=== PATIENT | male | born 1990 ===

== ENCOUNTER 2022-10-20 08:12 | Emergency (ER) | payer MEDICAID, SELFPAY ==
--- NOTE | ~2022-10-20 | CT_ITS ---
EXAMINATION: CT HEAD WITHOUT CONTRAST CLINICAL INFORMATION: Seizure COMPARISON: None available. TECHNIQUE: Contiguous axial imaging was performed from the skull base to vertex without intravenous administration of contrast. This CT examination was performed using dose optimization techniques as appropriate, variously including the following: *Automated exposure control *Adjustment of mA and/or kV according to patient size (this includes techniques or standardized protocols for targeted exams where dose is matched to indication/reason for exam; i.e. extremities or head) *Use of iterative reconstruction technique DLP: 716 mGy-cm FINDINGS: There is no evidence of an extra-axial collection. There is no evidence of intra or extra-axial hemorrhage. The ventricles and extra-axial CSF spaces are appropriate. Rodriguez-white matter differentiation is normal. No mass, mass effect or infarct. No skull fracture. Large polyps or cysts in the bilateral maxillary sinuses. CT/CT head/brain wo IV con IMPRESSION: No acute intracranial findings.
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
[2022-10-20 08:19] VITALS: BP 150/80; PULSE 108; PULSE 115; RESP 16; TEMP 37.1; O2SAT 94; BMI 31.0
[2022-10-20 09:09] LABS: MANUAL DIFF FLAG NO
[2022-10-20 09:12] LABS: Basophils Percent Auto 0.3 % (0-2); Eosinophils Absolute Auto 0.2 X10*3/uL (0.0-0.4); Eosinophils Percent Auto 1.5 % (0-4); Hematocrit 40.7 % (42.0-52.0); Hemoglobin 13.9 g/dl (14.0-18.0); Imm Gran Abs Auto 0.22 X10*3/uL (0.00-0.03); Lymphocytes Absolute Auto 2.4 X10*3/uL (1.2-4.9); Lymphocytes Percent Auto 21.6 % (20-40); Mean Corpuscular HGB Conc 34.2 g/dl (31.0-36.0); Mean Corpuscular Hemoglobin 30.5 pg (27.0-33.0); Mean Corpuscular Volume 89.3 fL (80.0-98.0); Mean Platelet Volume 10.5 fL (9.4-12.4); Monocytes Absolute Auto 0.9 X10*3/uL (0.1-1.2); Monocytes Percent Auto 8.2 % (2-11); Neutrophils Absolute Auto 7.3 x10*3/uL (2.0-8.3); Neutrophils Percent Auto 66.4 % (45-73); Platelet Count 152 X10*3/uL (160-400); Red Blood Count 4.56 X10*6/uL (4.60-5.80); Red Cell Distribution Width 11.9 % (11.0-16.0)
[2022-10-20 09:26] LABS: Anion Gap 11 (12-20); Blood Urea Nitrogen 16 mg/dL (9-16); Calcium 9.1 mg/dL (8.4-10.2); Carbon Dioxide 24 mmol/L (22-29); Chloride 105 mmol/L (96-108); Creatinine Clr Calc Pharmacy 151.8; Estimated Glomerular Filt Rate > 60; Glucose Random 108 mg/dL (60-115); Potassium 4.2 mmol/L (3.3-5.1); Sodium 136 mmol/L (135-145)
[2022-10-20 10:01] VITALS: BP 129/77; PULSE 66; RESP 14; TEMP 36.5; O2SAT 97
[2022-10-20 10:05] LABS: Amphetamine Screen Urine Not Detected (Not Detect); Barbiturates, Urine Not Detected (Not Detect); Benzodiazepines Screen Urine Not Detected (Not Detect); Cannabinoid Screen Urine Not Detected (Not Detect); Cocaine Screen Urine POSITIVE (Not Detect); Fentanyl, urine Not Detected (Not Detect); Opiate Screen Urine Not Detected (Not Detect); Phencyclidine Screen Urine Not Detected (Not Detect)
== END 2022-10-20 11:54 | disposition home or self-care (01) ==
PROVIDERS: Emergency Provider Emergency Medicine
DX: R56.9 Unspecified convulsions (principal); F19.10 Other psychoactive substance abuse, uncomplicated; F11.20 Opioid dependence, uncomplicated
CPT/HCPCS: 36415; 70450; 80048; 80307; 85025; 99284

== ENCOUNTER 2022-12-06 00:39 | Emergency (ER) | payer MEDICAID, SELFPAY ==
--- NOTE | ~2022-12-06 | XR_ITS ---
EXAMINATION: XR WRIST, RIGHT CLINICAL INFORMATION: Acute pain, trauma COMPARISON: None available. TECHNIQUE: Four views of the right wrist. FINDINGS: Osseous alignment is anatomic. There is dorsal soft tissue swelling and a possible osseous fragment dorsal to the proximal carpal row, raising concern for a triquetral fracture in the setting of trauma. No additional acute focal abnormality is seen. XR/XR wrist RT min 3V IMPRESSION: Possible triquetral fracture with associated dorsal soft tissue swelling. Correlation with point tenderness is recommended.
[2022-12-06 00:41] VITALS: BP 138/90; PULSE 106; RESP 18; TEMP 36.6; O2SAT 98; BMI 29.5
[2022-12-06 03:08] VITALS: BP 122/78; PULSE 99; RESP 17; TEMP 37.1; O2SAT 95
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
[2022-12-06] MEDS: Ketorolac Tromethamine 60 MG/2 ML VIAL IM (03:42)
--- NOTE | 2022-12-06 03:46 | MHC.EDTECH ---
Per the request of a volar splint was applied to pts right arm, this tech had provider check for placement. Patient tolerated procedure well and is awaiting discharge at this time. RN aware
== END 2022-12-06 03:50 | disposition home or self-care (01) ==
PROVIDERS: Emergency Provider Emergency Medicine
DX: S62.101A Fracture of unspecified carpal bone, right wrist, initial encounter for closed fracture (principal); M25.531 Pain in right wrist; Y04.2XXA Assault by strike against or bumped into by another person, initial encounter; Y93.9 Activity, unspecified; Y92.9 Unspecified place or not applicable; Y99.9 Unspecified external cause status
CPT/HCPCS: 73110; 96372; 99284; J1885

== ENCOUNTER 2022-12-14 10:50 | Outpatient (REF) | payer MEDICAID, SELFPAY ==
--- NOTE | ~2022-12-14 | XR_ITS ---
Examination: Right wrist. Clinical indication pain in right hand. COMPARISON: Right wrist 12/06/2022. TECHNIQUE: 4 views right wrist. FINDINGS: Again visualized is a small fragment dorsal to the triquetrum likely triquetrum fracture with mild dorsal soft tissue swelling which has improved slightly since 12/06/2022. No additional bony abnormality seen. XR/XR wrist RT w scaphoid IMPRESSION: Small avulsion fracture dorsal triquetrum with mild dorsal soft tissue swelling. The soft tissue swelling has improved since 12/06/2022.
== END 2022-12-14 10:51 | disposition home or self-care (01) ==
LOC: HO.HOSX 10:50
PROVIDERS: Visit Provider Physician Assistant
DX: S62.001A Unspecified fracture of navicular [scaphoid] bone of right wrist, initial encounter for closed fracture (principal); S62.111A Displaced fracture of triquetrum [cuneiform] bone, right wrist, initial encounter for closed fracture
CPT/HCPCS: 73110

== ENCOUNTER 2022-12-15 09:44 | Outpatient (AMB) | payer MEDICAID, SELFPAY ==
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
[2022-12-15 09:55] VITALS: BMI 29.4
== END 2022-12-15 11:11 | disposition home or self-care (01) ==
PROVIDERS: Visit Provider Physician Assistant
DX: S62.001A Unspecified fracture of navicular [scaphoid] bone of right wrist, initial encounter for closed fracture (principal); S62.111A Displaced fracture of triquetrum [cuneiform] bone, right wrist, initial encounter for closed fracture
CPT/HCPCS: 99204

== ENCOUNTER 2023-03-07 11:15 | Emergency (ER) | payer MEDICAID, SELFPAY ==
[2023-03-07 11:27] VITALS: BP 174/96; PULSE 112; O2SAT 97; BMI 31.6
[2023-03-07 11:29] VITALS: BP 164/84; PULSE 114; RESP 18; TEMP 36.3; O2SAT 93
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
--- NOTE | 2023-03-07 11:36 | ECG_ITS ---
Test Reason : SEIZURE Blood Pressure : / mmHG Vent. Rate : 095 BPM Atrial Rate : 095 BPM P-R Int : 136 ms QRS Dur : 096 ms QT Int : 358 ms P-R-T Axes : 047 026 035 degrees QTc Int : 449 ms Normal sinus rhythm with sinus arrhythmia Normal ECG No previous ECGs available Referred By: Radha Morrow Electronically Signed By:RICH RUSS MD
--- NOTE | 2023-03-07 11:37 | ED_ITS ---
HPI - Seizure General Chief Complaint: Seizure Stated Complaint: SEIZURE Time Seen by Provider: 03/07/23 11:33 Source: patient and other (Friend) Mode of arrival: ambulatory Limitations: no limitations History of Present Illness HPI Narrative: This is a 33-year-old male former history of substance abuse presenting to the emergency department status post witnessed seizure, seizure occurred while patient was seated in the passenger seat of a friend's car friend reports seizure was tonic clonic involved upper and lower extremities and lasted approximately a minute, patient was confused afterwards. No head strike, or trauma. Patient states he has had multiple seizures within the past few months has not yet seen Neurology. Is not on any seizure medications. He says he has had multiple negative head scans. Patient does not drink alcohol regularly. Denies drug use. Denies headache, vision changes, dizziness, weakness, chest pain, shortness of breath, abdominal pain, nausea and vomiting. No medical complaints at this time. Seizure History: Yes Place: car Related Data Previous Rx's Medication Instructions Recorded levetiracetam 500 mg tablet 500 mg PO BID 30 days #60 tabs 03/07/23 ([place]) Allergies Allergy/AdvReac Type Severity Reaction Status Date / Time No Known Allergies Allergy Verified 03/07/23 11:27 Review of Systems 2 Review of Systems: Constitutional : No Weight loss, No Fever, No Chills, No Fatigue, No Malaise ENT/Mouth : No sore throat, No Rhinorrhea Eyes: No Eye Pain, No Swelling, No Redness Cardiovascular : No Chest Pain, No SOB, No Dyspnea on Exertion, No Orthopnea, No Edema, No Palpitations Respiratory : No Cough, No Sputum, No Wheezing Gastrointestinal : No Nausea, No Vomiting, No Diarrhea, No Constipation, No abdominal Pain, No Hematochezia, No Melena Genitourinary : No Dysuria, No Urinary Frequency, No Hematuria, Musculoskeletal : No joint pain, No Myalgias, No Joint Swelling Skin : No Skin Lesions, No rash Neuro : No Weakness, No Numbness, No Dizziness, No Headache Psych : No Anxiety/Panic, No Depression All other systems reviewed and are negative Yes all other systems are reviewed and are negative PMFSH Past Medical History Attestation statement: The following information was validated with the patient. 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 Oriented X3.? No acute distress.? Head: Normocephalic, atraumatic, no step-offs or deformities Eyes: Pupils equal, round and reactive to light.? Neck: Normal inspection.? Neck supple.? CVS: Normal heart rate and rhythm.? Pulses normal.? Respiratory: No respiratory distress.? Breath sounds normal.? Abdomen: Soft and nontender.? Skin: Skin warm and dry.? Normal skin color.? Normal skin turgor.? Extremities: No lower extremity edema.? No calf ttp. 5/5 strength to bilateral upper and lower extremities Neuro: Oriented X 3.? No motor deficit.? No sensory deficit. CN 2-12 intact. Normal [id number]. Ambulatory steady gait normal coordination. Course Reevaluation(s) Reevaluation #1: Patient well-appearing, without seizure-like activity while in the department. CBC within normal limits. Chemistry unremarkable. Urine is pending however patient would like to leave without giving us urine no urinary symptoms. Time: 12:10 Reevaluation #2: I did discuss this case with my attending recommends starting Keppra 500 mg p.o. b.i.d., and having patient follow-up with neurology. No indication for head CT as he did have 1 before which was normal. There is 1 in our system I can verify. Educated patient on diagnosis and treatment plan, answered all question, patient verbalizes understanding. At this time patient will be discharged home, advised to return with new or worsening symptoms. Educated on worrisome signs and symptoms and when to return. At this time I feel comfortable discharge home. Patient requesting to leave. He was given Ativan. He is not driving. Time: 12:10 Medications Administered Discontinued Medications Generic Name Dose Route Start Last Admin Trade Name José Luis PRN Reason Stop Dose Admin Lorazepam 2 mg 03/07/23 11:36 03/07/23 11:53 Lorazepam 1 Mg Tablet PO 03/07/23 11:37 2 mg ONCE ONE Administration Medical Decision Making Medical Decision Making [facility] Narrative: 1142 33 yo m presents s/p witnessed seizure has had szs before not on meds and not followed by neurology PE- benign. Nonfocal neuro Likely epilepsy unlikely alcohol withdrawal seizure. I do not suspect intracranial hemorrhage, stroke, posterior stroke. Low suspicion for brain mass, patient recently had a head CT in September 2022 unremarkable. Denies substance abuse. Plan basic labs, EKG, will give 2 mg p.o. Ativan to raise seizure threshold Differential Diagnosis Differential Diagnoses: The differential diagnosis associated with the presentation includes Likely epilepsy unlikely alcohol withdrawal seizure. I do not suspect intracranial hemorrhage, stroke, posterior stroke. Low suspicion for brain mass, patient recently had a head CT in September 2022 unremarkable. Denies substance abuse. Admission/Observation Consideration of admission/observation: Escalation of care including admission/observation considered unlikely Lab Data [facility] Lab Attestation statement: I reviewed the patient's lab results. 03/07/23 11:40 03/07/23 11:40 Labs: Lab Results 03/07/23 Range/Units 11:40 WBC 7.8 (4.8-10.8) X10*3/uL RBC 4.76 (4.60-5.80) X10*6/uL Hgb 14.8 (14.0-18.0) g/dl Hct 43.9 (42.0-52.0) % MCV 92.2 (80.0-98.0) fL MCH 31.1 (27.0-33.0) pg MCHC 33.7 (31.0-36.0) g/dl RDW 12.8 (11.0-16.0) % Plt Count 185 (160-400) X10*3/uL MPV 11.1 (9.4-12.4) fL Immature Gran % (Auto) 0.3 (0.0-0.4) % Neut % (Auto) 65.9 (45-73) % Lymph % (Auto) 22.5 (20-40) % Granite % (Auto) 9.7 (2-11) % Eos % (Auto) 1.2 (0-4) % Baso % (Auto) 0.4 (0-2) % Lymph # (Auto) 1.8 (1.2-4.9) X10*3/uL Granite # (Auto) 0.8 (0.1-1.2) X10*3/uL Eos # (Auto) 0.1 (0.0-0.4) X10*3/uL Baso # (Auto) 0.0 (0.0-0.2) X10*3/uL Abs Immat Gran (auto) 0.02 (0.00-0.03) X10*3/uL Absolute Neuts (auto) 5.1 (2.0-8.3) x10*3/uL Absolute Nucleated RBC 0.000 (0.0-0.012) X10*3/uL Nucleated RBC % (auto) 0.0 (0.0-0.2) /100WBC Sodium 141 (135-145) mmol/L Potassium 4.8 (3.3-5.1) mmol/L Chloride 108 (96-108) mmol/L Carbon Dioxide 20 L (22-29) mmol/L Anion Gap 18 (12-20) BUN 12 (9-16) mg/dL Creatinine 0.82 (0.5-1.4) mg/dL Estim Creat Clear Calc 151.7 Estimated GFR > 60 Random Glucose 101 (60-115) mg/dL Calcium 9.7 D (8.4-10.2) mg/dL Total Bilirubin 0.4 (0.0-1.0) mg/dL AST 22 (5-37) U/L ALT 19 (0-40) U/L Alkaline Phosphatase 94 (39-117) U/L Total Protein 7.9 (6.5-8.0) g/dL Albumin 4.6 (3.5-5.0) g/dL Tests considered The following testing was considered but not selected: Considered obtaining head CT however no indication at this time no head trauma, neurological assessment nonfocal had a normal head CT on 10/20/2022. Prescription Management I considered prescription management with: Other (Joera ) Critical Care Time Critical Care Time Critical Care Time: No Discharge Plan Discharge Clinical Impression: Generalized seizure Patient Disposition: Home, Self-Care Instructions: New-Onset Seizure in Adults (ED) Additional Instructions: Take your medications as prescribed. If you were prescribed antibiotics today, it is important that you take your medication to their entirety, do not skip any doses, do not finish them early. Follow-up with your primary care provider this week. Return to the emergency department with new or worsening symptoms. Such as fevers, chills, chest pain, shortness of breath, nausea, vomiting, dizziness, headache, vision changes, lethargy In case of emergency call 911 Please to not operate a vehicle , drive or operate machinery until cleared by Neurology. I have sent you medication called Oscar, please take this twice a day for seizures. Neurology follow-up below Prescriptions: New levetiracetam [Keppra] 500 mg tablet 500 mg PO BID 30 Days Qty: 60 0RF Referrals: [facility] [place] [facility] [place] Group] - 2 days Center,Counts Include [facility] [Primary Care Provider] - 2 days Stand Alone Forms: Work/School Release
--- NOTE | 2023-03-07 11:44 | PC.NURSE ---
tech bedside obtaining labs.
[2023-03-07 11:48] LABS: Basophils Percent Auto 0.4 % (0-2); Eosinophils Absolute Auto 0.1 X10*3/uL (0.0-0.4); Eosinophils Percent Auto 1.2 % (0-4); Hematocrit 43.9 % (42.0-52.0); Hemoglobin 14.8 g/dl (14.0-18.0); Imm Gran Abs Auto 0.02 X10*3/uL (0.00-0.03); Imm Gran Pct Auto 0.3 % (0.0-0.4); Lymphocytes Absolute Auto 1.8 X10*3/uL (1.2-4.9); Lymphocytes Percent Auto 22.5 % (20-40); MANUAL DIFF FLAG NO; Mean Corpuscular HGB Conc 33.7 g/dl (31.0-36.0); Mean Corpuscular Hemoglobin 31.1 pg (27.0-33.0); Mean Corpuscular Volume 92.2 fL (80.0-98.0); Mean Platelet Volume 11.1 fL (9.4-12.4); Monocytes Absolute Auto 0.8 X10*3/uL (0.1-1.2); Monocytes Percent Auto 9.7 % (2-11); Neutrophils Absolute Auto 5.1 x10*3/uL (2.0-8.3); Neutrophils Percent Auto 65.9 % (45-73); Platelet Count 185 X10*3/uL (160-400); Red Blood Count 4.76 X10*6/uL (4.60-5.80); Red Cell Distribution Width 12.8 % (11.0-16.0); White Blood Count 7.8 X10*3/uL (4.8-10.8)
[2023-03-07] MEDS: LORazepam 1 MG TABLET 2 MG PO (11:53)
--- NOTE | 2023-03-07 11:54 | PC.NURSE ---
medication administered per provider order. friends bedside for support.
[2023-03-07 12:02] LABS: Alanine Aminotransferase 19 U/L (0-40); Albumin Level 4.6 g/dL (3.5-5.0); Alkaline Phosphatase 94 U/L (39-117); Anion Gap 18 (12-20); Aspartate Amino Transferase 22 U/L (5-37); Bilirubin Total 0.4 mg/dL (0.0-1.0); Blood Urea Nitrogen 12 mg/dL (9-16); Calcium 9.7 mg/dL (8.4-10.2); Carbon Dioxide 20 mmol/L (22-29); Chloride 108 mmol/L (96-108); Creatinine Clr Calc Pharmacy 151.7; Estimated Glomerular Filt Rate > 60; Glucose Random 101 mg/dL (60-115); Potassium 4.8 mmol/L (3.3-5.1); Sodium 141 mmol/L (135-145); Total Protein 7.9 g/dL (6.5-8.0)
== END 2023-03-07 12:28 | disposition home or self-care (01) ==
PROVIDERS: Physician Assistant; Emergency Provider Emergency Medicine
DX: R56.9 Unspecified convulsions (principal); I49.8 Other specified cardiac arrhythmias; Z79.899 Other long term (current) drug therapy
CPT/HCPCS: 36415; 80053; 85025; 93005; 99283; 99284

== ENCOUNTER 2023-03-22 09:55 | Outpatient (REF) | payer MEDICAID, SELFPAY ==
--- NOTE | ~2023-03-22 | XR_ITS ---
EXAMINATION: XR WRIST, RIGHT CLINICAL INFORMATION: Pain in right hand COMPARISON: Right wrist radiograph from 12/15/2022 TECHNIQUE: 4 views of the right wrist FINDINGS: Redemonstration of dorsal triquetral fracture, similar in appearance. Joint spaces and alignment are otherwise maintained. Soft tissue swelling overlying the dorsum of the wrist. XR/XR wrist RT w scaphoid IMPRESSION: 1. Redemonstration of dorsal triquetral fracture, similar in appearance. 2. Joint spaces and alignment are otherwise maintained. 3. Soft tissue swelling overlying the dorsum of the wrist.
== END 2023-03-22 09:56 | disposition home or self-care (01) ==
LOC: HO.HOSX 09:55
PROVIDERS: Visit Provider Physician Assistant
DX: M79.641 Pain in right hand (principal); S62.024G Nondisplaced fracture of middle third of navicular [scaphoid] bone of right wrist, subsequent encounter for fracture with delayed healing; S62.111D Displaced fracture of triquetrum [cuneiform] bone, right wrist, subsequent encounter for fracture with routine healing; X58.XXXD Exposure to other specified factors, subsequent encounter
CPT/HCPCS: 73110; 99212

== ENCOUNTER 2023-03-22 09:55 | Outpatient (AMB) | payer MEDICAID, SELFPAY ==
--- NOTE | 2023-03-22 09:58 | MHC.OFFVIS ---
Intake Intake Visit Reasons: FC- Right wrist injury 11/2022 Intake Note: This is a 33 year old male who presents for a right wrist injury. He reports some pain and popping in the wrist. He denies any further injury. Allergies No Known Allergies Allergy (Verified 03/22/23 10:05) Medication List - Last Reconciled 03/22/23 by Yumiko Cota, RN levetiracetam (Keppra) 500 mg PO BID 30 days HPI FC- Right wrist injury 11/2022 HPI Details 33-year-old male who presents to the office today for right wrist injury in November 2022. He states he has pain which is aggravated in the morning and experiences popping in his right wrist. He denies any further injury. He was seen at our office in November and a CT scan was ordered. He states there was a problem with his health insurance at the time and was unable to have the CT scan done. 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 Review of Systems Const All systems reviewed & are unremarkable except as noted in HPI and below Physical Exam Const General: cooperative, healthy appearing, comfortable, no acute distress, well developed and alert Orientation/consciousness: patient oriented x3 HEENT Head: Yes normal to inspection, Yes normocephalic and Yes atraumatic Eyes General: appearance normal, both eyes and all related structures Resp Effort & Inspection: normal respiratory effort and able to speak in complete sentences Cardio Rate: regular rate Peripheral pulses: Peripheral pulses 2+ throughout GI Palpation (GI): Soft to palpation Skin Lesions: no lesions Rashes: no rashes Neuro General: patient oriented x3 Extrem Other: Right wrist: Able to make a closed fist. Able to perform full finger flexion, extension, abduction, adduction, finger cross, okay sign, and thumbs up without deficit. Tenderness to palpation at the base of the thumb and along the ulnar styloid. No pain over the scapholunate region. No DRUJ instability. No pain with wrist compression. NVI. Results Reviewed Results Reviewed: X-rays of the right wrist with scaphoid view obtained in the office today show a scaphoid fracture. Assessment & Plan Assessment & Plan (1) Fracture of scaphoid bone of right wrist: Code(s): S62.001A - Unspecified fracture of navicular [scaphoid] bone of right wrist, initial encounter for closed fracture Qualifiers: Encounter type: subsequent encounter Scaphoid bone location: middle third Fracture type: closed Fracture alignment: nondisplaced Fracture healing: with delayed healing Qualified Code(s): S62.024G - Nondisplaced fracture of middle third of navicular [scaphoid] bone of right wrist, subsequent encounter for fracture with delayed healing (2) Fracture of triquetral bone of right wrist: Code(s): S62.111A - Displaced fracture of triquetrum [cuneiform] bone, right wrist, initial encounter for closed fracture Qualifiers: Encounter type: subsequent encounter Fracture type: closed Fracture alignment: nondisplaced Fracture healing: with routine healing Qualified Code(s): S62.114D - Nondisplaced fracture of triquetrum [cuneiform] bone, right wrist, subsequent encounter for fracture with routine healing Plan I strongly recommend immobilization of right wrist with thumb spica cast however the patient is reluctant to have this put on because he states it will interfere with his job and cannot be out of work due to his financial situation. I explain to him that if he is not immobilizing his right wrist and is performing any type of lifting, pushing, pulling or carrying greater than a cellphone, he could really risk further injury to right wrist and develop a nonunion of the scaphoid. I explained to him that this could potentially result in collapse of the wrist where he could later on develop severe complications with the function of the wrist. He states he understands all of this but would prefer to be in a removable right wrist splint which he states he has at home as he does want to be provided with a new one today as he does not want to billed for it. He did assure me that he will go home and put on his right thumb spica brace and he will also come in to the office later this week to have it remolded. I also put in a new order for a CT scan to further evaluate the integrity of scaphoid. I strongly encouraged him to stop smoking as it does cause poor healing outcome in fracture. He does understand all this and follow-up once complete. Orders: Orders XR wrist RT w scaphoid 03/22/23 M79.641 - Pain in right hand CT wrist RT wo IV con 03/22/23 S62.001A - Unspecified fracture of navicular [scaphoid] bone of right wrist, initial encounter for closed fracture, S62.111A - Displaced fracture of triquetrum [cuneiform] bone, right wrist, initial encounter for closed fracture Patient Instructions: Scribed for Elizabeth Davila PA-C, by Kian Hirsch medical esthetician, on 03/22/2023 at 9:45 AM EST. I, Elziabeth Davila PA-C, have personally reviewed and agree with the information entered by the scribe. Coding Level of Care Code Global (83951) Diagnoses Closed nondisplaced fracture of middle third of scaphoid of right wrist with delayed healing, subsequent encounter S62.024G Encounter type: subsequent encounter Scaphoid bone location: middle third Fracture type: closed Fracture alignment: nondisplaced Fracture healing: with delayed healing Closed nondisplaced fracture of triquetrum of right wrist with routine healing, subsequent encounter S62.114D Encounter type: subsequent encounter Fracture type: closed Fracture alignment: nondisplaced Fracture healing: with routine healing
== END 2023-03-22 11:14 | disposition home or self-care (01) ==
PROVIDERS: Visit Provider Physician Assistant
DX: S62.024G Nondisplaced fracture of middle third of navicular [scaphoid] bone of right wrist, subsequent encounter for fracture with delayed healing (principal); S62.114D Nondisplaced fracture of triquetrum [cuneiform] bone, right wrist, subsequent encounter for fracture with routine healing
CPT/HCPCS: 99213

== ENCOUNTER 2023-09-14 13:11 | Outpatient (REF) | payer MEDICAID, SELFPAY ==
--- NOTE | 2023-09-14 13:18 | EEG_ITS ---
FINDINGS: Waking background activity consists of a low voltage posterior 9 hertz frequency intermixed with muscle artifact anteriorly and scattered theta seen intermittently. Photic stimulation and hyperventilation are without activation. No focal, lateralizing, or paroxysmal discharges are seen. IMPRESSION: This waking EEG is within normal limits MD MILEY Ibarra/RAND / [id number]
== END 2023-09-14 13:12 | disposition home or self-care (01) ==
LOC: HO.NEURO 13:11
PROVIDERS: PCP Family Medicine; Visit Provider Family Medicine
DX: G40.909 Epilepsy, unspecified, not intractable, without status epilepticus (principal)
CPT/HCPCS: 95816

== ENCOUNTER 2024-11-18 06:34 | Inpatient (IN) | payer MEDICAID, SELFPAY ==
[2024-11-18] VITALS (9 sets, daily range): BP systolic 103–140; BP diastolic 48–70; PULSE 58–90; RESP 12–19; TEMP 36.2–37.7; O2SAT 96–100; BMI 24.8
--- NOTE | ~2024-11-18 | CT_ITS ---
CLINICAL HISTORY: AMS CT head without contrast Comparison: CT/SR - CT HEAD/BRAIN WO IV CON - 10/20/22 08:55 EDT Findings: No intra-axial mass, midline shift, hydrocephalus, or acute hemorrhage. No significant atrophy-like change or white matter disease. Mucous retention cyst right maxillary sinus. Paranasal sinuses and mastoid air cells are otherwise clear. The orbits are unremarkable. There is no acute fracture. IMPRESSION: 1. No acute intracranial findings. This document has been electronically signed by: Radha Perdomo MD on 11/18/2024 08:29:28
--- NOTE | 2024-11-18 06:45 | ECG_ITS ---
Test Reason : SEIZURE Blood Pressure : */* mmHG Vent. Rate : 82 BPM Atrial Rate : 82 BPM P-R Int : 132 ms QRS Dur : 110 ms QT Int : 402 ms P-R-T Axes : 66 48 59 degrees QTcB Int : 469 ms Normal sinus rhythm Normal ECG When compared with ECG of 07-Mar-2023 11:45, No significant change was found Referred By: Gege Banks Electronically Signed By: MATTHEW CALDERON
[2024-11-18] MEDS: levETIRAcetam in NaCl (iso-os) 1,500 MG/100 ML PIGGYBACK 400 MG IV (06:49)
[2024-11-18] MEDS: 0.9 % Sodium Chloride 1,000 ML 999 ML IVCONT (06:50)
--- NOTE | 2024-11-18 06:50 | ED.SEIZURE ---
HPI - Seizure General Chief Complaint: Seizure Stated Complaint: erratic behavior & substance use Time Seen by Provider: 11/18/24 06:44 Source: patient Mode of arrival: ambulatory Limitations: no limitations History of Present Illness ED Provider: Dr. Gege Banks HPI Narrative: Patient comes to the emergency room via ambulance for erratic behavior. According to EMS, the patient was found walking around his neighborhood trying to get into other people's houses. When EMS arrived, patient's seem confused, under the influence of drugs versus alcohol? . However, EMS reports that the patient's girlfriend informed that that earlier today patient had a seizure. On arrival to the emergency room, patient had a tonic-clonic seizure lasting approximately 2 minutes. Patient received a dose of 5 mg IM diazepam. Patient does have history of seizures. Seizure History: Yes Related Data Previous Rx's ?Medication ?Instructions ?Recorded levetiracetam 500 mg tablet 500 mg PO BID 30 days #60 tabs 03/07/23 (Keppra) Allergies Allergy/AdvReac Type Severity Reaction Status Date / Time No Known Allergies Allergy Verified 11/18/24 06:54 Review of Systems Review of Systems: Yes Unobtainable due to mental status and Other (Patient is postictal) [facility] Past Medical History Medical History (Updated 11/18/24 @ 07:00 by Gege Banks MD) Seizures Social History Social History Alcohol intake: current Alcohol intake frequency: a few times a week Alcohol type: hard liquor Substance Use Type: Painkillers Advance Directives: No Advance Directives Information Provided: Yes Do you have a plan to hurt others: No Plan Current occupational status: employed 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 ENT: Pharynx normal. No bites to the tongue Neck: Normal inspection. Neck supple. No lymph nodes noted. No crepitus CVS: Normal heart rate and rhythm. Pulses normal. Normal S1 and S2 Respiratory: No respiratory distress. Breath sounds normal. No Wheezing. No rales Abdomen: Soft and nontender. No rigidity. No distention. Skin: Skin warm and dry. Normal skin color. Normal skin turgor. Extremities: No lower extremity edema. No Lacerations. No Rash Neuro: Patient recovering from a tonic-clonic seizure that was witnessed here in the emergency room Psych: Postictal Course Course Course Narrative: On arrival to the emergency room, patient had a tonic-clonic seizure. Seems that earlier today patient had a seizure as well. Unclear if the patient's erratic behavior happened before or after the initial seizure. It is possible the patient has been postictal. Patient received a dose of IM diazepam 5 mg and now receiving IV 1500 mg of Keppra All of patient's labs pending Seems that patient has had at least 2 seizures today. Patient will need admission. I reviewed patient's past medical records, in 2022, patient was seen here at this hospital for seizures. Reevaluation(s) Reevaluation #1: 34-year-old male with history of generalized seizure not taking antiseizure medication with known previous neurological evaluation for his condition, had a witnessed seizure by significant other followed by postictal confusion and erratic behavior witnessed by his significant other, then patient had another seizure in the ED with postictal period. Patient now is awake, able to regard examiner patient is unable to tell me if he is taking antiseizure medication or not. Head CT reveals no acute intracranial pathology. Labs revealing leukocytosis and lactic acidosis, patient received fluids will repeat lactic acid which is likely secondary to seizure. Patient received 1500 mg of Keppra loading dose in the ED. Time: 09:42 Medications Administered Discontinued Medications Generic Name Dose Route Start Last Admin Trade Name Freq PRN Reason Stop Dose Admin Diazepam 5 mg 11/18/24 06:44 11/18/24 07:01 Diazepam 10 Mg/2 Ml Cartridge IM 11/18/24 06:45 5 mg STAT STA Administration Levetiracetam 1,500 mg in 100 mls @ 400 mls/hr 11/18/24 06:44 11/18/24 07:06 Keppra IV 11/18/24 06:58 Infused ONCE ONE Infusion Sodium Chloride 1,000 mls @ 999 mls/hr 11/18/24 06:45 11/18/24 07:55 Ns IVCONT 11/18/24 07:45 Infused .Q1H1M ONE Infusion Lactated Ringer's 1,000 mls @ 999 mls/hr 11/18/24 07:45 11/18/24 08:50 Lr IV 11/18/24 08:45 Infused .Q1H1M VALERIE Infusion Medical Decision Making Medical Decision Making MDM Narrative: Patient has history of seizures. However, patient was running outside acting erratic, unclear if patient had any kind of head injury. Head CT pending. My interpretation of EKG: Normal sinus rhythm, heart rate 82, no ST segment depression or elevation, no T-wave inversion, QTC 469 All of patient's labs and imaging pending Sign out given to my colleague Dr. Guzman Differential Diagnosis Differential Diagnoses: The differential diagnosis associated with the presentation includes (Polysubstance abuse, epilepsy, alcohol withdrawal seizures) Admission/Observation Consideration of admission/observation: Escalation of care including admission/observation considered Lab Data 11/18/24 07:04 11/18/24 07:04 Labs: Lab Results 11/18/24 Range/Units 07:04 WBC 17.3 H (4.8-10.8) X10*3/uL RBC 4.47 L (4.60-5.80) X10*6/uL Hgb 13.6 L (14.0-18.0) g/dl Hct 39.5 L (42.0-52.0) % MCV 88.4 (80.0-98.0) fL MCH 30.4 (27.0-33.0) pg MCHC 34.4 (31.0-36.0) g/dl RDW 12.1 (11.0-16.0) % Plt Count 182 (160-400) X10*3/uL MPV 10.6 (9.4-12.4) fL Immature Gran % (Auto) 0.6 H (0.0-0.4) % Neut % (Auto) 87.5 H (45-73) % Lymph % (Auto) 6.9 L (20-40) % [place] % (Auto) 4.8 (2-11) % Eos % (Auto) 0.1 (0-4) % Baso % (Auto) 0.1 (0-2) % Lymph # (Auto) 1.2 (1.2-4.9) X10*3/uL [place] # (Auto) 0.8 (0.1-1.2) X10*3/uL Eos # (Auto) 0.0 (0.0-0.4) X10*3/uL Baso # (Auto) 0.0 (0.0-0.2) X10*3/uL Abs Immat Gran (auto) 0.11 H (0.00-0.03) X10*3/uL Absolute Neuts (auto) 15.1 H (2.0-8.3) x10*3/uL Absolute Nucleated RBC 0.000 (0.0-0.012) X10*3/uL Nucleated RBC % (auto) 0.0 (0.0-0.2) /100WBC Sodium 141 (135-145) mmol/L Potassium 4.4 (3.3-5.1) mmol/L Chloride 108 (96-108) mmol/L Carbon Dioxide 15 L (22-29) mmol/L Anion Gap 22 H (12-20) BUN 14 (9-16) mg/dL Creatinine 0.86 (0.5-1.4) mg/dL Estim Creat Clear Calc 121.0 Estimated GFR > 60 Random Glucose 92 (60-115) mg/dL Lactic Acid 8.5 H* (0.5-2.0) mmol/L Calcium 8.9 D (8.4-10.2) mg/dL Magnesium 2.1 (1.6-2.6) mg/dL Total Bilirubin 0.6 (0.0-1.0) mg/dL Direct Bilirubin 0.2 (0.0-0.5) mg/dL AST 21 (5-37) U/L ALT 14 (0-40) U/L Alkaline Phosphatase 118 H (39-117) U/L Troponin I High Sens < 2.7 (<3.5-35.0) ng/L Total Protein 7.7 (6.5-8.0) g/dL Albumin 4.5 (3.5-5.0) g/dL Ethyl Alcohol < 10 mg/dL Critical Care Time Critical Care Time Critical Care Time: Yes Total Critical Care Time: 60 Attestation: I have personally provided critical care time. Time includes review of lab data, radiology results, discussion with consultants, and monitoring for potential decompensation. Intervention performed as documented. Discharge Plan Discharge Clinical Impression: Seizure Patient Disposition: Admitted As Inpatient
[2024-11-18] MEDS: diazePAM 10 MG/2 ML CARTRIDGE 5 MG IM (07:01)
--- NOTE | 2024-11-18 07:01 | PC.NURSE ---
Per EMS, pt erratically banging on front door of neighbors. On arrival to the emergency room, patient had a tonic-clonic seizure lasting approximately 2 minutes. Patient received a dose of 5 mg IM diazepam. Patient does have history of seizures. 20 G IV line established in R forearm, seizure pads applied. Keppra 1500 mg IV and 1 L NS started and infusing without issues.
[2024-11-18 07:09] LABS: MANUAL DIFF FLAG NO
[2024-11-18 07:12] LABS: Basophils Percent Auto 0.1 % (0-2); Eosinophils Percent Auto 0.1 % (0-4); Hematocrit 39.5 % (42.0-52.0); Hemoglobin 13.6 g/dl (14.0-18.0); Imm Gran Abs Auto 0.11 X10*3/uL (0.00-0.03); Imm Gran Pct Auto 0.6 % (0.0-0.4); Lymphocytes Absolute Auto 1.2 X10*3/uL (1.2-4.9); Lymphocytes Percent Auto 6.9 % (20-40); Mean Corpuscular HGB Conc 34.4 g/dl (31.0-36.0); Mean Corpuscular Hemoglobin 30.4 pg (27.0-33.0); Mean Corpuscular Volume 88.4 fL (80.0-98.0); Mean Platelet Volume 10.6 fL (9.4-12.4); Monocytes Absolute Auto 0.8 X10*3/uL (0.1-1.2); Monocytes Percent Auto 4.8 % (2-11); Neutrophils Absolute Auto 15.1 x10*3/uL (2.0-8.3); Neutrophils Percent Auto 87.5 % (45-73); Platelet Count 182 X10*3/uL (160-400); Red Blood Count 4.47 X10*6/uL (4.60-5.80); Red Cell Distribution Width 12.1 % (11.0-16.0); White Blood Count 17.3 X10*3/uL (4.8-10.8)
[2024-11-18 07:39] LABS: Lactic Acid 8.5 mmol/L (0.5-2.0)
[2024-11-18 07:41] LABS: Alanine Aminotransferase 14 U/L (0-40); Albumin Level 4.5 g/dL (3.5-5.0); Alkaline Phosphatase 118 U/L (39-117); Anion Gap 22 (12-20); Aspartate Amino Transferase 21 U/L (5-37); Bilirubin Direct 0.2 mg/dL (0.0-0.5); Bilirubin Total 0.6 mg/dL (0.0-1.0); Blood Urea Nitrogen 14 mg/dL (9-16); Calcium 8.9 mg/dL (8.4-10.2); Carbon Dioxide 15 mmol/L (22-29); Chloride 108 mmol/L (96-108); Estimated Glomerular Filt Rate > 60; Ethanol < 10 mg/dL; Glucose Random 92 mg/dL (60-115); Magnesium 2.1 mg/dL (1.6-2.6); Potassium 4.4 mmol/L (3.3-5.1); Sodium 141 mmol/L (135-145); Total Protein 7.7 g/dL (6.5-8.0); Troponin-I High Sensitivity < 2.7 ng/L (<3.5-35.0)
[2024-11-18] MEDS: Lactated Ringers 1,000 ML 999 ML IV (07:48)
--- NOTE | 2024-11-18 07:53 | PC.NURSE ---
Assumed care of pt at 0700. Pt alert- not oriented, responds to verbal stimuli. Per night RN, 2min seizure upon arrival to ED. Pt remains post ictal- resting with eyes closed. 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 Pt resistant to care- pulling NC out of nose/self removing ornamental metal worker leads. Pt unable to be re-oriented/re-directed. Significant other at bedside- per SO, pt had 3 tonic-clonic seizures last night. Pt has not taken his keppra x3 months d/t insurance issues and has been experiencing frequent seizures at home. LR infusing per MAR, vitals updated in worklist. Call garcia within reach, all needs met at this time.
[2024-11-18 09:09] LABS: Reflex Lactate? Lactic Acid Added
--- NOTE | 2024-11-18 10:04 | P.HPHOSP_ITS ---
History of Present Illness Date of Service: 11/18/24 Attending physician on admission: Surinder Lake Chief Complaint: Witnessed seizure Pt is a 34-year-old male with a PMH significant for?seizure disorder, polysubstance use disorder, alcohol use disorder in remission x3 monthsm and active IVDU who presents to the ED with?after being picked up by the police for acting erratically and trying to get into a neighbor's apartment. Pt somnolent and confused at time of interview and exam (likely combination of postictal and sedation from diazepam); HPI taken from liliana who was contacted by phone. Hiral reports pt has been experiencing seizures mostly when he sleeps for the past year, usually 2-3 per month. Was seen by Neurology x1 without additional followup and prescribed Keppra 500 mg b.i.d. which stopped his seizures. However, pt lost insurance and not been taking his medications for the past 3 months and seizures have since restarted. Last night liliana witnessed 3 seizures and pt then fell back asleep. Apparently sometime during the night pt woke up and went downstairs and then became knocking on the neighbor's door. Pt recently stopped drinking alcohol 3 months ago, though may have had a 1-2 beers last night. Still actively injecting heroin with last use last night around 20:00. In the ED pt's vitals stable and WNL. Labs were significant for leukocytosis of 17.3 and lactic acid 8.5 with repeat WNL at 0.7. Stable H&H. No significant electrolyte abnormalities. Renal function baseline. Hepatic function baseline. Troponin negative. UA negative. Ethyl alcohol negative. Tox screen positive for opiates, fentanyl, and cocaine. CT?of head negative for acute intracranial findings. EKG demonstrated normal sinus rhythm with QTc 469. Pt was treated in the ED with IVF, diazepam 5 mg IM, and Keppra 1500 mg IV. Pt is admitted to the hospital for treatment and further evaluation of breakthrough seizures likely secondary to medication noncompliance complicated by active drug use. Review of Systems 2 Review of Systems: Yes Unobtainable due to mental status [facility] Medical History (Updated 11/18/24 @ 11:08 by ALICIA Patino) Seizures Social History Unable to assess alcohol history related to: Unable to respond Alcohol intake: current Alcohol intake frequency: a few times a week Alcohol type: hard liquor Patient Tobacco Use Status: Never used Tobacco Use of substances other than those prescribed or required for medical reasons: Unable to respond Substance Use Type: Painkillers Advance Directives: No Advance Directives Information Provided: Yes Do you have a plan to hurt others: No Plan Nutrition Risks: No Nutritional Risk Current occupational status: employed 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 Somnolent but arousable, falling back asleep during interview. In no acute distress Resp: CTA bilaterally CVS: S1, S2, RRR GI: +BS, NT, no distention Skin: Warm, dry Neuro: Cranial nerves II-XII grossly intact bilaterally. Motor grossly intact bilaterally Extremities: No edema Psych: Appropriate affect Results Labs 11/18/24 07:04 11/18/24 07:04 Labs: Laboratory Results - last 24 hr 11/18/24 07:04 MCV 88.4 MCH 30.4 MCHC 34.4 RDW 12.1 Plt Count 182 MPV 10.6 Immature Gran % (Auto) 0.6 H Neut % (Auto) 87.5 H Lymph % (Auto) 6.9 L [place] % (Auto) 4.8 Eos % (Auto) 0.1 Baso % (Auto) 0.1 Lymph # (Auto) 1.2 [place] # (Auto) 0.8 Eos # (Auto) 0.0 Baso # (Auto) 0.0 Abs Immat Gran (auto) 0.11 H Absolute Neuts (auto) 15.1 H Absolute Nucleated RBC 0.000 Nucleated RBC % (auto) 0.0 Anion Gap 22 H Estim Creat Clear Calc 121.0 Estimated GFR > 60 Random Glucose 92 Lactic Acid 8.5 H* Calcium 8.9 D Magnesium 2.1 Total Bilirubin 0.6 Direct Bilirubin 0.2 AST 21 ALT 14 Alkaline Phosphatase 118 H Troponin I High Sens < 2.7 Total Protein 7.7 Albumin 4.5 Ethyl Alcohol < 10 Assessment and Plan (1) Breakthrough seizure: Status: Acute Plan Pt is a 34-year-old male with a PMH significant for?seizure disorder, polysubstance use disorder, alcohol use disorder in remission x3 monthsm and active IVDU who presents to the ED with?after being picked up by the police for acting erratically and trying to get into a neighbor's apartment. Pt is admitted to the hospital for treatment and further evaluation of breakthrough seizures likely secondary to medication noncompliance complicated by active drug use. Breakthrough seizures Three seizures last night witnessed by hiral, additional tonic-clonic seizure lasting 2 minutes in the ED Secondary to medication non-compliance complicated by active IVDU Pt stopped Keppra 500mg bid 3 months ago after losing insurance Pt given diazepam 5 mg IM and loaded with Keppra 1500 mg IV in the ED Will treat with Keppra 500 mg IV b.i.d. Neurology consult, will defer EEG pending Neurology input Seizure precautions, monitor on telemetry Acute lactic acidosis, resolved Initial lactic acid 8.5 with repeat WNL at 0.7 Secondary to seizure activity, not sepsis Leukocytosis Initial WBC 17.7, likely reactionary to seizure activity, not sepsis Follow CBC Hx of alcohol use disorder Liliana reports in remission x3 months Monitor on CIWA Polysubstance use disorder Active IVDU with heroin; tox screen also positive for cocaine Not on methadone or suboxone Addiction medicine consult Full Code Attending:?Dr. Lake DVT Prophylaxis: Lovenox Pt will require a hospitalization of at least two nights for treatment of?breakthrough seizure likely secondary to medication noncompliance and complicated by active IVDU. pt will require hospital level of care for administration of IV Keppra and close monitoring of neurologic and cardiac function. Quality Stroke Does the patient have a stroke diagnosis?: No VTE Prior VTE?: No VTE Risk Level:: Medical - moderate - high VTE Device Contraindication: Treatment Not Indicated VTE Drug Contraindication: N/A - Med Ordered
[2024-11-18 10:40] LABS: ~Lactic Acid-LAB USE ONLY 0.7 mmol/L (0.5-2.0)
--- NOTE | 2024-11-18 10:44 | PC.NURSE ---
No straight cath needed- pt able to give clean catch specimen at bedside.
[2024-11-18 10:54] LABS: Appearance Urine Clear; Color Urine Yellow; Glucose Urine UA Negative (Negative); Leukocyte Esterase Urine Negative (Negative); Nitrite Urine Negative (Negative); Urine Blood Negative (Negative); Urine Ketones 15 mg/dL (Negative); Urine Protein Negative (Neg-Trace)
[2024-11-18 11:03] LABS: Amphetamine Screen Urine Not Detected (Not Detect); Barbiturates, Urine Not Detected (Not Detect); Benzodiazepines Screen Urine Not Detected (Not Detect); Buprenorphine Scr Not Detected (Not Detect); Cannabinoid Screen Urine Not Detected (Not Detect); Cocaine Screen Urine POSITIVE (Not Detect); Fentanyl, urine POSITIVE (Not Detect); Methadone Screen, Urine Not Detected (Not Detect); Opiate Screen Urine POSITIVE (Not Detect); Oxycodone Screen Urine Not Detected (Not Detect); Phencyclidine Screen Urine Not Detected (Not Detect)
[2024-11-18] MEDS: Enoxaparin Sodium 40 MG/0.4 ML SYRINGE SUBCUT (11:31)
--- NOTE | 2024-11-18 13:44 | PHA.MEDREC ---
Addendum entered by Precious Espinoza RPh 11/18/24 13:53: Reviewed by [facility]. Provider notified of Keppra Original Note: Pharmacy Consult ? Medication Reconciliation Pharmacy has completed the medication reconciliation. Spoke with spouse (Trish) over the phone. She reports patient is currently on no medications currently. He last took keppra 3 months ago but stopped due to losing his insurance.
[2024-11-18] MEDS: 0.9 % Sodium Chloride Flush 3 ML SYRINGE IVFLUSH ×2 (15:05→21:42)
--- NOTE | 2024-11-18 15:21 | PM.NEUROCN ---
History of Present Illness Data of Consult Service Date: 11/18/24 Primary Care Provider: None Physician HPI Reason for consult: Seizure disorder 34 years old man who apparently has diagnosis of seizure disorder but who was also actively using multiple drugs of abuse including cocaine. Apparently he has seen a neurologist and has been prescribed Keppra but there was no record of him being in our office. I would noted that an appointment for him was made twice but he did not come for those appointments. In any case, he told me that he has been having seizures for about a year and was prescribed a medicine but could not afford the medicine because he did not have insurance. He was brought to hospital when he was noted to be in a confused state in his girlfriend apparently reported that he was having seizures intermittently. Review of Systems Review of Systems: Not able to fully answer questions. No recent cold or flu-like illness PMFSH Past Medical History Medical History (Updated 11/18/24 @ 11:08 by ALICIA Patino) Seizures Social History Social History Household Members: Unknown / Unable to assess Housing: Unknown / Unable to assess Unable to assess alcohol history related to: Unable to respond Alcohol intake: current Alcohol intake frequency: a few times a week Alcohol type: hard liquor Patient Tobacco Use Status: Never used Tobacco Use of substances other than those prescribed or required for medical reasons: Unable to respond Substance Use Type: Painkillers Advance Directives: No Advance Directives Information Provided: Yes Do you have a plan to hurt others: No Plan Recently lost weight without trying: Unsure Nutrition Risks: No Nutritional Risk Current occupational status: employed 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 Meds Allergies Allergy/AdvReac Type Severity Reaction Status Date / Time No Known Allergies Allergy Verified 11/18/24 06:54 Active Medications: Current Medications Acetaminophen (Acetaminophen 325 Mg Tablet) 650 mg PO Q6H PRN PRN Reason: Pain, Mild 1-3,fever,headache Calcium Carbonate (Calcium Carbonate 750 Mg Tab.Chew) 750 mg PO Q4H PRN PRN Reason: Heartburn Enoxaparin Sodium (Enoxaparin Sodium 40 Mg/0.4 Ml Syringe) 40 mg SUBCUT Q24H VALERIE Last Admin: 11/18/24 11:31 Dose: 40 mg Levetiracetam (Keppra) 500 mg in 100 mls @ 400 mls/hr IV Q12H [facility] Magnesium Hydroxide (Milk Of Magnesia 30 Ml Oral.Susp) 30 ml PO DAILY PRN PRN Reason: Constipation Melatonin (Melatonin 3 Mg Tablet) 6 mg PO BEDTIME PRN PRN Reason: Insomnia Ondansetron HCl (Ondansetron Hcl 4 Mg/2 Ml Vial) 4 mg IVPUSH Q8H PRN PRN Reason: Nausea and Vomiting Sodium Chloride (0.9 % Sodium Chloride Flush 3 Ml Syringe) 3 ml IVFLUSH QSHIFT VALERIE Last Admin: 11/18/24 15:05 Dose: 3 ml Home Medications ?Medication ?Instructions ?Recorded ?Confirmed ?Last Taken ?Type No Known Home Meds 11/18/24 11/18/24 Unknown History Physical Exam Vital Signs: Vital Signs: Last Vital Signs Temp 99.2 F 11/18/24 11:38 Pulse 71 11/18/24 11:38 Resp 16 11/18/24 11:38 BP 109/48 L 11/18/24 11:38 Pulse Ox 97 11/18/24 11:38 O2 Del Method Room Air 11/18/24 11:38 O2 Flow Rate 2 11/18/24 07:50 BMI result Body Mass Index 24.8 Neuro: Other: mildly drowsy and vague in answering questions. Spontaneity and fluency of speech were normal. Comprehension was normal. He could not tell me who is neurologist was. He was somewhat resistant to examination laying on his side and did not want to straight in his body. There was no obvious visual field defect her focal arm or leg weakness. Speech was normal Results Labs 11/18/24 07:04 11/18/24 07:04 Labs: Short CBC 11/18/24 Range/Units 07:04 WBC 17.3 H (4.8-10.8) X10*3/uL Hgb 13.6 L (14.0-18.0) g/dl Hct 39.5 L (42.0-52.0) % Plt Count 182 (160-400) X10*3/uL BMP 11/18/24 07:04 Sodium 141 Potassium 4.4 Chloride 108 Carbon Dioxide 15 L BUN 14 Creatinine 0.86 Calcium 8.9 D Liver Function 11/18/24 Range/Units 07:04 Total Bilirubin 0.6 (0.0-1.0) mg/dL Direct Bilirubin 0.2 (0.0-0.5) mg/dL AST 21 (5-37) U/L ALT 14 (0-40) U/L Alkaline Phosphatase 118 H (39-117) U/L Albumin 4.5 (3.5-5.0) g/dL Urine 11/18/24 Range/Units 10:45 Urine Color Yellow Urine Appearance Clear Urine pH 5.0 (5.0-9.0) Ur Specific [place] 1.010 (1.005-1.025) Urine Protein Negative (Neg-Trace) mg/dL Urine Glucose (UA) Negative (Negative) mg/dL noncontrast head CT did not reveal any significant abnormality. Assessment and Plan (1) Seizure: Status: Acute 34 years old man with metabolic toxic encephalopathy from multiple etiologies including use of fentanyl and cocaine and probably also seizure disorder. Is neuropsychiatric issues are complicated and I would suggest involving social and political studies professor to help him out. On 1 hand, he should have appropriate follow-up to help him stopped chemical abuse, and on the other hand arrangement should be made to help him obtain antiepileptic. Diagnosis of epilepsy at this time is tentative and could be explored further as an outpatient with an EEG. In the meantime a prescription of levetiracetam 500 mg twice a day can be given. He should not drive and not be involved in any activity that could put his life in danger such as swimming alone or sitting in a soaking tub alone or working with heavy machinery. Procedures Date of Service Date of Service: 11/18/24
[2024-11-18] MEDS: levETIRAcetam in NaCl (iso-os) 500 MG/100 ML PIGGYBACK 400 MG IV (21:41)
[2024-11-19 03:31] VITALS: BP 108/58; PULSE 65; RESP 16; TEMP 37.2; O2SAT 98
[2024-11-19 06:42] LABS: MANUAL DIFF FLAG NO
[2024-11-19 07:09] LABS: Basophils Percent Auto 0.1 % (0-2); Hematocrit 34.7 % (42.0-52.0); Imm Gran Abs Auto 0.08 X10*3/uL (0.00-0.03); Imm Gran Pct Auto 0.8 % (0.0-0.4); Lymphocytes Absolute Auto 1.4 X10*3/uL (1.2-4.9); Lymphocytes Percent Auto 13.8 % (20-40); Mean Corpuscular HGB Conc 34.6 g/dl (31.0-36.0); Mean Corpuscular Hemoglobin 29.9 pg (27.0-33.0); Mean Corpuscular Volume 86.3 fL (80.0-98.0); Mean Platelet Volume 11.4 fL (9.4-12.4); Monocytes Absolute Auto 0.7 X10*3/uL (0.1-1.2); Monocytes Percent Auto 6.6 % (2-11); Neutrophils Absolute Auto 8.2 x10*3/uL (2.0-8.3); Neutrophils Percent Auto 78.7 % (45-73); Platelet Count 164 X10*3/uL (160-400); Red Blood Count 4.02 X10*6/uL (4.60-5.80); Red Cell Distribution Width 11.9 % (11.0-16.0); White Blood Count 10.4 X10*3/uL (4.8-10.8)
[2024-11-19 07:11] VITALS: BP 123/59; PULSE 60; RESP 18; TEMP 36.6; O2SAT 97
[2024-11-19 07:56] LABS: Alanine Aminotransferase 8 U/L (0-40); Albumin Level 3.9 g/dL (3.5-5.0); Alkaline Phosphatase 91 U/L (39-117); Aspartate Amino Transferase 20 U/L (5-37); Blood Urea Nitrogen 12 mg/dL (9-16); Calcium 8.7 mg/dL (8.4-10.2); Creatinine Clr Calc Pharmacy 157.7; Estimated Glomerular Filt Rate > 60; Glucose Random 119 mg/dL (60-115); Magnesium 1.7 mg/dL (1.6-2.6); Total Protein 6.6 g/dL (6.5-8.0)
[2024-11-19 08:04] LABS: Anion Gap 15 (12-20); Carbon Dioxide 22 mmol/L (22-29); Chloride 107 mmol/L (96-108); Potassium 3.6 mmol/L (3.3-5.1); Sodium 140 mmol/L (135-145)
[2024-11-19] MEDS: levETIRAcetam in NaCl (iso-os) 500 MG/100 ML PIGGYBACK 400 MG IV (10:10)
[2024-11-19 11:29] VITALS: BP 128/59; PULSE 76; RESP 18; TEMP 37.1; O2SAT 100
[2024-11-19] MEDS: methADONE HCl 20 MG/2 ML ORAL.CONC 30 MG PO (11:41)
--- NOTE | 2024-11-19 12:49 | HO.PM.IMPN ---
Subjective Subjective Date of Service: 11/19/24 Interval History: seen and evaluated this morning reporting withdrawal symptoms not interested in talking no reported seizures overnight Review of Systems Review of Systems: Yes all other systems are reviewed and are negative Physical Exam Vital Signs: Vital Signs: Last Vital Signs Temp 98.7 F 11/19/24 11:29 Pulse 76 11/19/24 11:29 Resp 18 11/19/24 11:29 BP 128/59 L 11/19/24 11:29 Pulse Ox 100 11/19/24 11:29 O2 Del Method Room Air 11/19/24 11:29 O2 Flow Rate 2 11/18/24 07:50 BMI result Body Mass Index 24.8 Const: Other: Constitutional : interactive, not in distress Cardiovascular : no JVP, no lower extremity edema Respiratory : bilateral chest movement, not in resp distress Gastrointestinal: soft, lax, Non tender Skin : Warm, Dry Neurological : Alert & oriented , No focal deficit Objective Data Active Medications Acetaminophen (Acetaminophen 325 Mg Tablet) 650 mg PO Q6H PRN PRN Reason: Pain, Mild 1-3,fever,headache Calcium Carbonate (Calcium Carbonate 750 Mg Tab.Chew) 750 mg PO Q4H PRN PRN Reason: Heartburn Enoxaparin Sodium (Enoxaparin Sodium 40 Mg/0.4 Ml Syringe) 40 mg SUBCUT Q24H [facility] Last Admin: 11/19/24 10:31 Dose: Not Given Documented By: MYRNA Non-Admin Reason: Patient Refused Levetiracetam (Keppra) 500 mg in 100 mls @ 400 mls/hr IV Q12H [facility] Last Infusion: 11/19/24 10:30 Dose: Infused Documented By: KENY Magnesium Hydroxide (Milk Of Magnesia 30 Ml Oral.Susp) 30 ml PO DAILY PRN PRN Reason: Constipation Melatonin (Melatonin 3 Mg Tablet) 6 mg PO BEDTIME PRN PRN Reason: Insomnia Methadone HCl (Methadone Hcl 20 Mg/2 Ml Oral.Conc) 30 mg PO ONCE PRN PRN Reason: Opiate Withdrawal Last Admin: 11/19/24 11:41 Dose: 30 mg Documented By: KENY Co-signed By: ELAINE Ondansetron HCl (Ondansetron Hcl 4 Mg/2 Ml Vial) 4 mg IVPUSH Q8H PRN PRN Reason: Nausea and Vomiting Sodium Chloride (0.9 % Sodium Chloride Flush 3 Ml Syringe) 3 ml IVFLUSH QSHIFT [facility] Last Admin: 11/19/24 07:38 Dose: Not Given Documented By: KENY Non-Admin Reason: Previously Administered Labs 11/19/24 06:32 11/19/24 06:32 Labs: Laboratory Results - last 24 hr 11/19/24 06:32 MCV 86.3 MCH 29.9 MCHC 34.6 RDW 11.9 Plt Count 164 MPV 11.4 Immature Gran % (Auto) 0.8 H Neut % (Auto) 78.7 H Lymph % (Auto) 13.8 L [place] % (Auto) 6.6 Eos % (Auto) 0.0 Baso % (Auto) 0.1 Lymph # (Auto) 1.4 [place] # (Auto) 0.7 Eos # (Auto) 0.0 Baso # (Auto) 0.0 Abs Immat Gran (auto) 0.08 H Absolute Neuts (auto) 8.2 Absolute Nucleated RBC 0.000 Nucleated RBC % (auto) 0.0 Anion Gap 15 Estim Creat Clear Calc 157.7 Estimated GFR > 60 Random Glucose 119 H Calcium 8.7 Magnesium 1.7 Total Bilirubin 1.0 AST 20 ALT 8 Alkaline Phosphatase 91 Total Protein 6.6 Albumin 3.9 Assessment and Plan (1) Breakthrough seizure: Status: Acute (2) Opioid abuse: Status: Acute (3) Cocaine abuse: Status: Acute Plan Pt is a 34-year-old male with a PMH significant for?seizure disorder, polysubstance use disorder, alcohol use disorder in remission x3 monthsm and active IVDU who presents to the ED with?after being picked up by the police for acting erratically and trying to get into a neighbor's apartment. Pt is admitted to the hospital for treatment and further evaluation of breakthrough seizures likely secondary to medication noncompliance complicated by active drug use. Breakthrough seizures Secondary to medication non-compliance as he lost insurance and complicated by active IVDU switch to Keppra 500 mg PO b.i.d. Neurology consult, EEG outpatient, Keppra 500 bid Seizure precautions, monitor on telemetry to send his medication to [facility] pharmacy tomorrow before discharging Acute lactic acidosis, resolved Secondary to seizure activity, not sepsis Leukocytosis Initial WBC 17.7, likely reactionary to seizure activity, not sepsis resolved Hx of alcohol use disorder Fiance reports in remission x3 months Monitor on CIWA Polysubstance use disorder with acute withdrawal Active IVDU with heroin; tox screen also positive for cocaine Not on methadone or suboxone Addiction medicine consult; start Methadone for withdrawal symptoms Full Code DVT Prophylaxis: Lovenox Pt will require a hospitalization overnight for treatment of?breakthrough seizure likely secondary to medication noncompliance and complicated by active IVDU. pt will require hospital level of care for administration of Keppra and close monitoring until medication is available for him as outpatient Quality Stroke Does the patient have a stroke diagnosis?: No VTE Prior VTE?: No VTE Risk Level:: Medical - moderate - high VTE Device Contraindication: Treatment Not Indicated VTE Drug Contraindication: N/A - Med Ordered
--- NOTE | 2024-11-19 15:37 | PC.NURSE ---
Pt arrived to the unit from tele 11/19 at 15:30
[2024-11-19 15:38] VITALS: BP 106/49; PULSE 54; RESP 16; TEMP 36.8; O2SAT 92
--- NOTE | 2024-11-19 15:53 | MHC.CM.PN ---
Addendum entered by Juani Cedillo 11/19/24 16:24: PT AND S/O AWARE HE WILL LIKELY BE CLEARED TO DC TOMORROW AND SHOULD GO TO THE [facility] FOR ASSISTANCE WITH PRESCRIPTIONS UNTIL HIS MH IS ACTIVATED Addendum entered by Viviana Lora RN 11/19/24 16:03: Patient does not have insurance at this time. Referral sent to [employer] [facility] via e-mail. Original Note: Interview conducted w/ S.O. at bedside per patient request, as he would like to sleep. Patient currently unhoused, mostly staying in his car w/ S.O., which they park at a friend's house. +THRIVE. Functionally independent. Denies use of DME or services. Started on Methadone at [facility]. No home clinic. PCP @ [facility] No HCP. CM provided education and offered assistance. Declined. DP: Provided resource guide, penitentiary list, and list of other [facility] resources. Current plan is return to car, which is parked in [facility] lot. S.O/patient will update if patient would like assistance w/ penitentiary placement. Self care. CM will continue to follow.
[2024-11-19] MEDS: methADONE HCl 20 MG/2 ML ORAL.CONC 10 MG PO (18:19)
--- NOTE | 2024-11-19 19:26 | HO.ADDICTCON ---
History of Present Illness Date of Service: 11/19/2024 Chief Complaint: Seizure Reason for Consult: OUD Sources of Information: chart reviewed Additional Sources of Information: patient's girlfriend HPI Narrative: Patient is a 34 year old male, medically admitted following tonic clonic seizures. Consult requested due to +UDS, and GF report that patient recently restarted using heroin/fentanyl. All information obtained from chart review or from collateral provided by GF, who was in the room when patient was seen by t/w. Patient seen in room 384. He is laying in bed, eyes closed, responds to voice, but minimally engaged in interview. He appears restless, frequently shifting positions in bed, and he is observed yawning. When asked if he was exoeriencing any opiate withdrawal, he shrugged. When asked if he wanted to initiate methadone while here, he nodded yes. His GF, reports that patient last used fentanyl 2 days ago, prior to admission. States he has been using approx a bundle daily. She says he started using opiates again 3 months ago, after he stopped drinking alcohol. Unsure about overdose history, treatment history Unknown HIV or hepatitis screening history Labs reviewed UDS +opiates, cocaine, fentanyl Review of Systems Review of Systems Yes Unobtainable due to mental status Diagnostics Vital Signs (24Hr): Vital Signs - 24 hr 11/18/24 19:56 11/18/24 23:44 11/19/24 03:31 Temperature 97.1 F 98.4 F 98.9 F Pulse Rate 65 58 65 Respiratory Rate 18 18 16 Blood Pressure 113/58 L 111/58 L 108/58 L Pulse Oximetry 97 97 98 Oxygen Delivery Method Room Air Room Air Room Air 11/19/24 07:11 11/19/24 11:29 11/19/24 15:38 Temperature 97.9 F 98.7 F 98.3 F Pulse Rate 60 76 54 Respiratory Rate 18 18 16 Blood Pressure 123/59 L 128/59 L 106/49 L Pulse Oximetry 97 100 92 Oxygen Delivery Method Room Air Room Air Room Air BMI result Body Mass Index 24.8 Labs 11/19/24 06:32 11/19/24 06:32 Labs: Laboratory Results - last 48 hr 11/18/24 11/18/24 11/18/24 07:04 10:16 10:45 WBC 17.3 H RBC 4.47 L Hgb 13.6 L Hct 39.5 L MCV 88.4 MCH 30.4 MCHC 34.4 RDW 12.1 Plt Count 182 MPV 10.6 Immature Gran % (Auto) 0.6 H Neut % (Auto) 87.5 H Lymph % (Auto) 6.9 L [place] % (Auto) 4.8 Eos % (Auto) 0.1 Baso % (Auto) 0.1 Lymph # (Auto) 1.2 [place] # (Auto) 0.8 Eos # (Auto) 0.0 Baso # (Auto) 0.0 Abs Immat Gran (auto) 0.11 H Absolute Neuts (auto) 15.1 H Absolute Nucleated RBC 0.000 Nucleated RBC % (auto) 0.0 Sodium 141 Potassium 4.4 Chloride 108 Carbon Dioxide 15 L Anion Gap 22 H BUN 14 Creatinine 0.86 Estim Creat Clear Calc 121.0 Estimated GFR > 60 Random Glucose 92 Lactic Acid 8.5 H* Lactic Acid F/U @ 2Hr 0.7 Calcium 8.9 D Magnesium 2.1 Total Bilirubin 0.6 Direct Bilirubin 0.2 AST 21 ALT 14 Alkaline Phosphatase 118 H Troponin I High Sens < 2.7 Total Protein 7.7 Albumin 4.5 Urine Color Yellow Urine Appearance Clear Urine pH 5.0 Ur Specific [place] 1.010 Urine Protein Negative Urine Glucose (UA) Negative Urine Ketones 15 Urine Blood Negative Urine Nitrite Negative Ur Leukocyte Esterase Negative Urine Opiates Screen POSITIVE H Ur Buprenorphine Scrn Not Detected Ur Oxycodone Screen Not Detected Urine Methadone Screen Not Detected Urine Fentanyl Screen POSITIVE H Ur Barbiturates Screen Not Detected Ur Phencyclidine Scrn Not Detected Ur Amphetamines Screen Not Detected U Benzodiazepines Scrn Not Detected Urine Cocaine Screen POSITIVE H U Marijuana (THC) Screen Not Detected Ethyl Alcohol < 10 11/19/24 06:32 WBC 10.4 RBC 4.02 L Hgb 12.0 L Hct 34.7 L MCV 86.3 MCH 29.9 MCHC 34.6 RDW 11.9 Plt Count 164 MPV 11.4 Immature Gran % (Auto) 0.8 H Neut % (Auto) 78.7 H Lymph % (Auto) 13.8 L [place] % (Auto) 6.6 Eos % (Auto) 0.0 Baso % (Auto) 0.1 Lymph # (Auto) 1.4 [place] # (Auto) 0.7 Eos # (Auto) 0.0 Baso # (Auto) 0.0 Abs Immat Gran (auto) 0.08 H Absolute Neuts (auto) 8.2 Absolute Nucleated RBC 0.000 Nucleated RBC % (auto) 0.0 Sodium 140 Potassium 3.6 Chloride 107 Carbon Dioxide 22 Anion Gap 15 BUN 12 Creatinine 0.66 Estim Creat Clear Calc 157.7 Estimated GFR > 60 Random Glucose 119 H Lactic Acid Lactic Acid F/U @ 2Hr Calcium 8.7 Magnesium 1.7 Total Bilirubin 1.0 Direct Bilirubin AST 20 ALT 8 Alkaline Phosphatase 91 Troponin I High Sens Total Protein 6.6 Albumin 3.9 Urine Color Urine Appearance Urine pH Ur Specific [place] Urine Protein Urine Glucose (UA) Urine Ketones Urine Blood Urine Nitrite Ur Leukocyte Esterase Urine Opiates Screen Ur Buprenorphine Scrn Ur Oxycodone Screen Urine Methadone Screen Urine Fentanyl Screen Ur Barbiturates Screen Ur Phencyclidine Scrn Ur Amphetamines Screen U Benzodiazepines Scrn Urine Cocaine Screen U Marijuana (THC) Screen Ethyl Alcohol Mental Status Exam Mental Status Exam Level of Consciousness: Drowsy (uncooperative with questions) Medications Medications Current Medications Acetaminophen (Acetaminophen 325 Mg Tablet) 650 mg PO Q6H PRN PRN Reason: Pain, Mild 1-3,fever,headache Calcium Carbonate (Calcium Carbonate 750 Mg Tab.Chew) 750 mg PO Q4H PRN PRN Reason: Heartburn Enoxaparin Sodium (Enoxaparin Sodium 40 Mg/0.4 Ml Syringe) 40 mg SUBCUT Q24H VALERIE Last Admin: 11/19/24 10:31 Dose: Not Given Levetiracetam (Levetiracetam 500 Mg Tablet) 500 mg PO BID [facility] Magnesium Hydroxide (Milk Of Magnesia 30 Ml Oral.Susp) 30 ml PO DAILY PRN PRN Reason: Constipation Melatonin (Melatonin 3 Mg Tablet) 6 mg PO BEDTIME PRN PRN Reason: Insomnia Methadone HCl (Methadone Hcl 20 Mg/2 Ml Oral.Conc) 30 mg PO ONCE PRN PRN Reason: Opiate Withdrawal Last Admin: 11/19/24 11:41 Dose: 30 mg Methadone HCl (Methadone Hcl 20 Mg/2 Ml Oral.Conc) 10 mg PO DAILY PRN PRN Reason: Opiate Withdrawal Last Admin: 11/19/24 18:19 Dose: 10 mg Ondansetron HCl (Ondansetron Hcl 4 Mg/2 Ml Vial) 4 mg IVPUSH Q8H PRN PRN Reason: Nausea and Vomiting Sodium Chloride (0.9 % Sodium Chloride Flush 3 Ml Syringe) 3 ml IVFLUSH QSHIFT VALERIE Last Admin: 11/19/24 14:15 Dose: Not Given Allergies Allergies Allergy/AdvReac Type Severity Reaction Status Date / Time No Known Allergies Allergy Verified 11/18/24 06:54 Assessment & Plan Assessment & Plan (1) Opioid use disorder, severe, dependence: Status: Acute Code(s): F11.20 - Opioid dependence, uncomplicated Assessment and Plan: methadone 30mg X1 when patient requests it methadone 10mg QD PRN for withdrawal sx methadone 45mg in AM [place] started referral to [facility] HIV and hepatitis screens ordered take home narcan at discharge will follow up in AM/prior to discharge Total time managing care of this patient today _30___ minutes. PMFSH Past Medical History Medical History (Updated 11/19/24 @ 19:38 by Isabel Arauz CNP) Seizures Social History Social History Household Members: Unknown / Unable to assess Housing: Unknown / Unable to assess Unable to assess alcohol history related to: Unable to respond Alcohol intake: current Alcohol intake frequency: a few times a week Alcohol type: hard liquor Patient Tobacco Use Status: Never used Tobacco Use of substances other than those prescribed or required for medical reasons: Unable to respond Substance Use Type: Painkillers Currently Displaying Signs/Symptoms of Drug Intoxication Withdrawal: No Advance Directives: No Advance Directives Information Provided: Yes Do you have a plan to hurt others: No Plan Recently lost weight without trying: Unsure Nutrition Risks: No Nutritional Risk service: No Current occupational status: employed 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
[2024-11-19 20:00] VITALS: BP 103/59; PULSE 61; RESP 18; TEMP 36.8; O2SAT 98
[2024-11-19] MEDS: levETIRAcetam 500 MG TABLET PO (20:58)
[2024-11-19] MEDS: 0.9 % Sodium Chloride Flush 3 ML SYRINGE IVFLUSH (23:41)
[2024-11-20 03:26] VITALS: BP 121/56; PULSE 60; RESP 18; TEMP 37.1; O2SAT 98
[2024-11-20 06:04] LABS: MANUAL DIFF FLAG NO
[2024-11-20 06:16] LABS: Basophils Percent Auto 0.1 % (0-2); Eosinophils Percent Auto 0.1 % (0-4); Hematocrit 36.5 % (42.0-52.0); Hemoglobin 12.6 g/dl (14.0-18.0); Imm Gran Abs Auto 0.04 X10*3/uL (0.00-0.03); Imm Gran Pct Auto 0.4 % (0.0-0.4); Lymphocytes Absolute Auto 1.6 X10*3/uL (1.2-4.9); Lymphocytes Percent Auto 16.3 % (20-40); Mean Corpuscular HGB Conc 34.5 g/dl (31.0-36.0); Mean Corpuscular Hemoglobin 30.1 pg (27.0-33.0); Mean Corpuscular Volume 87.1 fL (80.0-98.0); Mean Platelet Volume 11.6 fL (9.4-12.4); Monocytes Absolute Auto 0.8 X10*3/uL (0.1-1.2); Monocytes Percent Auto 7.4 % (2-11); Neutrophils Absolute Auto 7.6 x10*3/uL (2.0-8.3); Neutrophils Percent Auto 75.7 % (45-73); Platelet Count 158 X10*3/uL (160-400); Red Blood Count 4.19 X10*6/uL (4.60-5.80); White Blood Count 10.1 X10*3/uL (4.8-10.8)
[2024-11-20 06:24] LABS: Anion Gap 12 (12-20); Blood Urea Nitrogen 9 mg/dL (9-16); Carbon Dioxide 26 mmol/L (22-29); Chloride 110 mmol/L (96-108); Creatinine Clr Calc Pharmacy 165.2; Estimated Glomerular Filt Rate > 60; Glucose Random 113 mg/dL (60-115); Potassium 3.6 mmol/L (3.3-5.1); Sodium 144 mmol/L (135-145)
[2024-11-20 06:55] LABS: HBS Num1 286.58 mIU/mL (0-7.99); HBc Num1 0.24 S/CO (0.00-0.79); HBsAGNum1 0.34 S/CO (0.00-0.99); HIV AB/AG Nonreactive (Nonreactive); HIV Num 1 0.08 S/CO (0.00-0.99); Hepatitis A Antibody IgM 0.33 Index (0-0.79); Hepatitis B Core Antibody Nonreactive (Nonreactive); Hepatitis B Surface Antigen Negative (Negative); ~HepC Num1 13.35 S/CO (0.00-0.79); ~Hepatitis A Antibody IgM Nonreactive (Nonreactive); ~Hepatitis B Surface Antibody REACTIVE (Nonreactive); ~Hepatitis C Antibody Reactive (Nonreactive)
[2024-11-20 07:34] VITALS: BP 135/63; PULSE 54; RESP 16; TEMP 37.2; O2SAT 99
[2024-11-20] MEDS: methADONE HCl 20 MG/2 ML ORAL.CONC 50 MG PO (09:03)
[2024-11-20] MEDS: levETIRAcetam 500 MG TABLET PO (09:03)
[2024-11-20] MEDS: 0.9 % Sodium Chloride Flush 3 ML SYRINGE IVFLUSH (09:05)
[2024-11-20 10:49] VITALS: BP 122/66; PULSE 70; RESP 16; TEMP 37.2; O2SAT 97
--- NOTE | 2024-11-20 10:50 | PM.DS ---
DS: Providers Provider Date of Service: 11/20/24 Date of admission: 11/18/24 10:03 Date of discharge: 11/20/24 Primary care physician: None Physician Consults: 11/18/24 10:42 Addiction Medicine Provider Routine Consulting Provider: Addiction Covering Reason for consultation: Active IVDU, hx of AUD 11/18/24 10:43 Consult to Neurology Routine Consulting Provider: [facility] Reason for consultation: Breakthrough seizures, non-compliant with f/u & home meds 11/19/24 20:38 Inpt - Recovery Team Routine Comment: Reason for consultation: WILBERTO eval DS: Diagnosis Discharge Diagnosis (1) Opioid use disorder, severe, dependence: Status: Acute DS: Summary Hospital Course Hospital Course: History and physical as per admitting provider.Pt is a 34-year-old male with a PMH significant for?seizure disorder, polysubstance use disorder, alcohol use disorder in remission x3 monthsm and active IVDU who presents to the ED with?after being picked up by the police for acting erratically and trying to get into a neighbor's apartment. Pt somnolent and confused at time of interview and exam (likely combination of postictal and sedation from diazepam); HPI taken from liliana who was contacted by phone. Lilianadelmar reports pt has been experiencing seizures mostly when he sleeps for the past year, usually 2-3 per month. Was seen by Neurology x1 without additional followup and prescribed Keppra 500 mg b.i.d. which stopped his seizures. However, pt lost insurance and not been taking his medications for the past 3 months and seizures have since restarted. Last night liliana witnessed 3 seizures and pt then fell back asleep. Apparently sometime during the night pt woke up and went downstairs and then became knocking on the neighbor's door. Pt recently stopped drinking alcohol 3 months ago, though may have had a 1-2 beers last night. Still actively injecting heroin with last use last night around 20:00. In the ED pt's vitals stable and WNL. Labs were significant for leukocytosis of 17.3 and lactic acid 8.5 with repeat WNL at 0.7. Stable H&H. No significant electrolyte abnormalities. Renal function baseline. Hepatic function baseline. Troponin negative. UA negative. Ethyl alcohol negative. Tox screen positive for opiates, fentanyl, and cocaine. CT?of head negative for acute intracranial findings. EKG demonstrated normal sinus rhythm with QTc 469. Pt was treated in the ED with IVF, diazepam 5 mg IM, and Keppra 1500 mg IV. Pt is admitted to the hospital for treatment and further evaluation of breakthrough seizures likely secondary to medication noncompliance complicated by active drug use. 34-year-old man admitted with breakthrough seizures secondary to noncompliance with medications. Apparently the patient has lost his insurance and has not been on any seizure medication for the last 3 months. He has also not seen a neurologist. Patient was treated with Keppra 500 mg twice daily and he will continue this. Medications sent to [facility]. Acute lactic acidosis. Secondary to seizure activity, not sepsis. Resolved Leukocytosis. Initially 17.7. Likely secondary to seizure activity not sepsis. History of alcohol use disorder. Apparently his fiancee reported that he was in remission for the past 3 months. No withdrawal symptoms noted. Polysubstance use disorder with acute withdrawal. Active IV drug use with heroin tox screen also positive for cocaine. Started on methadone and will follow up inpatient for dosing Time Attestation Discharge Coordination Time (in mins): 30 Quality: Safe Use of Opioids Does Pt have an Active Cancer Diagnosis on the Problem List?: No Quality: Stroke Does the patient have a stroke diagnosis?: No Physical Exam Vital Signs: Vital Signs: Last Vital Signs Temp 99.0 F 11/20/24 10:49 Pulse 70 11/20/24 10:49 Resp 16 11/20/24 10:49 BP 122/66 11/20/24 10:49 Pulse Ox 97 11/20/24 10:49 O2 Del Method Room Air 11/20/24 10:49 O2 Flow Rate 2 11/18/24 07:50 BMI result Body Mass Index 24.8 Appearing in no acute distress head is normocephalic atraumatic eyes pupils are PERRLA sclera is anicteric mouth throat mucous membranes are intact and moist neck is supple no lymphadenopathy, no JVD noted lung sounds are clear to auscultation heart regular rate rhythm, clear S1, S2 positive bowel sounds, abdomen is soft, nontender neuro patient is alert x3, no focal deficits DS: Data Data Completed and Pending Labs on day of discharge: Laboratory Results - last 24 hr 11/20/24 05:34 WBC 10.1 RBC 4.19 L Hgb 12.6 L Hct 36.5 L MCV 87.1 MCH 30.1 MCHC 34.5 RDW 12.0 Plt Count 158 L MPV 11.6 Immature Gran % (Auto) 0.4 Neut % (Auto) 75.7 H Lymph % (Auto) 16.3 L [place] % (Auto) 7.4 Eos % (Auto) 0.1 Baso % (Auto) 0.1 Lymph # (Auto) 1.6 [place] # (Auto) 0.8 Eos # (Auto) 0.0 Baso # (Auto) 0.0 Abs Immat Gran (auto) 0.04 H Absolute Neuts (auto) 7.6 Absolute Nucleated RBC 0.000 Nucleated RBC % (auto) 0.0 Sodium 144 Potassium 3.6 Chloride 110 H Carbon Dioxide 26 Anion Gap 12 BUN 9 Creatinine 0.63 Estim Creat Clear Calc 165.2 Estimated GFR > 60 Random Glucose 113 Calcium 9.0 Hepatitis A IgM Ab Nonreactive Hep Bs Antigen Negative Hep Bs Antibody REACTIVE Hep B Core Total Ab Nonreactive Hepatitis C Ab (EIA) Reactive H HIV 1&2 Ab/P24 Ag 4thGn Nonreactive Discharge Plan Discharge Anticipated Discharge Date/Time: 11/20/24 08:09 Patient Disposition: Home, Self-Care Discharge Diagnosis: breakthrough seizure Discharge Medications: New levetiracetam 500 mg Tablet 500 mg PO BID Qty: 60 0RF Discharge Orders: Discharge Order (Routine); Ordered 11/20/24 Ordered By: Haylie Jimenez Diet: Advance to usual diet Activity on Discharge: As tolerated Stand Alone Forms: Patient Portal Discharge page Print Language: [place]ese Care Plan Goals: Do not drive a car, do not do activities that can be dangerous if you are alone such as swimming, using equipment with fire, sitting in the bathtub, ect Health Concerns: breakthrough seizure Plan of Treatment: follow-up with obtaining health insurance and finding a primary care provider Take seizure medications as prescribed Assessment: see discharge summary Patient Instructions: Epilepsy (DC), Narcotic Use Disorder (DC) Discharge Date/Time: 11/20/24 10:57
--- NOTE | 2024-11-20 11:07 | MHC.CM.PN ---
PT [facility] HE IS AWARE HE SHOULD GO TO [facility] TO APPLY FOR HSN TO COVER MEDS CAR IN LOT
== END 2024-11-20 10:57 | disposition home or self-care (01) | DRG 53 ==
LOC: HO.ED 09:45 → HO.EDOVER 10:04 → HO.IMC 10:20 → HO.S3 11-19 15:04
PROVIDERS: Emergency Medicine; Nurse Practitioner Psychiatric/Mental Health; Student in an Organized Health Care Education/Training Program; Admitting Provider Student in an Organized Health Care Education/Training Program; Emergency Provider Emergency Medicine; Visit Provider Nurse Practitioner Acute Care
DX: G40.909 Epilepsy, unspecified, not intractable, without status epilepticus (principal); G92.8 Other toxic encephalopathy; E87.21 Acute metabolic acidosis; F11.20 Opioid dependence, uncomplicated; F10.91 Alcohol use, unspecified, in remission; T42.6X6A Underdosing of other antiepileptic and sedative-hypnotic drugs, initial encounter; F19.939 Other psychoactive substance use, unspecified with withdrawal, unspecified
CPT/HCPCS: 36415; 70450; 80048; 80053; 80076; 80307; 81003; 83605; 83735; 84484; 85025; 86704; 86706; 86709; 86803; 87340; 87389; 93005; 99285; J1650; J1953; J3360; J7120; S9485

== ENCOUNTER → 2024-11-18 06:45 | Outpatient (BNV) | payer MEDICAID, SELFPAY | PROVIDERS: Admitting Provider Student in an Organized Health Care Education/Training Program; Emergency Provider Emergency Medicine; Visit Provider Internal Medicine | DX: R56.9 Unspecified convulsions (principal) | CPT/HCPCS: 93010 ==

== ENCOUNTER → 2024-11-18 06:54 | Outpatient (BNV) | payer MEDICAID, SELFPAY | PROVIDERS: Emergency Provider Emergency Medicine; Visit Provider Radiology Diagnostic Radiology | DX: R41.82 Altered mental status, unspecified (principal) | CPT/HCPCS: 70450 ==

== ENCOUNTER → 2024-11-18 10:03 | Outpatient (BNV) | payer MEDICAID, SELFPAY | PROVIDERS: Admitting Provider Student in an Organized Health Care Education/Training Program; Emergency Provider Emergency Medicine; Visit Provider Student in an Organized Health Care Education/Training Program | DX: G40.919 Epilepsy, unspecified, intractable, without status epilepticus (principal); F11.10 Opioid abuse, uncomplicated; F14.10 Cocaine abuse, uncomplicated | CPT/HCPCS: 99223; 99233 ==

== ENCOUNTER → 2024-11-18 10:03 | Outpatient (BNV) | payer MEDICAID, SELFPAY | PROVIDERS: Admitting Provider Student in an Organized Health Care Education/Training Program; Emergency Provider Emergency Medicine; Visit Provider Psychiatry & Neurology Neurology | DX: R56.9 Unspecified convulsions (principal) | CPT/HCPCS: 99222 ==

== ENCOUNTER → 2024-11-18 10:03 | Outpatient (BNV) | payer OTHER, SELFPAY | PROVIDERS: Admitting Provider Student in an Organized Health Care Education/Training Program; Emergency Provider Emergency Medicine; Visit Provider Nurse Practitioner Psychiatric/Mental Health | DX: F11.20 Opioid dependence, uncomplicated (principal) | CPT/HCPCS: 99222 ==